=== PATIENT | female | born 1980 | race Caucasian/White ===

== ENCOUNTER 2018-12-06 15:25 | Inpatient (IN) | payer OTHER ==
[2018-12-06] MEDS ORDERED: DOCUSATE SODIUM 100 MG CAP PO (17:30)
[2018-12-06] MEDS ORDERED: HYDROCODONE/APAP (5/325) TAB PO (17:30)
[2018-12-06] MEDS: PROMETHAZINE 25 MG SUPP PR (17:30)
[2018-12-06] MEDS ORDERED: ACETAMINOPHEN 325 MG TAB PO (17:30)
[2018-12-06] MEDS ORDERED: MAGNESIUM HYDROXIDE 30ML CUP PO (17:30)
[2018-12-06] MEDS ORDERED: ALBUTEROL/IPRATROPIUM (NEB) 3 ML AMP HHN (17:30)
[2018-12-06] MEDS ORDERED: ONDANSETRON 4 MG INJ IV (17:30)
[2018-12-06] MEDS ORDERED: NACL 0.9% 3 ML SYG IV (17:30)
[2018-12-06] MEDS ORDERED: NITROGLYCERIN (SL) 0.4 MG TAB SL (17:30)
[2018-12-06] MEDS: PANTOPRAZOLE 40 MG INJ IV (18:04)
[2018-12-06] MEDS: SOD CHLORIDE 0.9% 1,000 ML IV (18:05)
[2018-12-06] MEDS: HEPARIN 5,000 UNIT/1 ML VIAL SC (20:46)
[2018-12-06 23:12] LABS: FREE T4 (FREE THYROXINE) 1.37 ng/dl (0.79-2.35)
[2018-12-07] MEDS: ONDANSETRON 4 MG INJ IV ×2 (00:23→10:41)
[2018-12-07] MEDS: SOD CHLORIDE 0.9% 1,000 ML IV ×4 (03:19→23:10)
[2018-12-07 05:27] LABS: ADD MAN DIFF? NO
[2018-12-07 05:38] LABS: BASOPHIL # 0.1 10^3/ul (0.0-0.1); BASOPHILS % 0.6 % (0.0-2.0); EOSINOPHILS # 0.1 10^3/ul (0.0-0.5); HEMATOCRIT 37.7 % (37.0-47.0); LYMPHOCYTES # 2.6 10^3/ul (0.8-2.9); LYMPHOCYTES % 26.4 % (15.0-51.0); MEAN CORPUSCULAR HEMOGLOBIN 27.3 pg (29.0-33.0); MEAN CORPUSCULAR HGB CONC 31.8 g/dl (32.0-37.0); MEAN CORPUSCULAR VOLUME 85.9 fl (82.0-101.0); MEAN PLATELET VOLUME 10.4 fl (7.4-10.4); MONOCYTES % 10.4 % (0.0-11.0); NEUTROPHILS % 61.3 % (39.0-77.0); PLATELET COUNT 302 10^3/UL (140-415); RED BLOOD COUNT 4.39 10^6/ul (4.20-5.40)
[2018-12-07 05:38] LABS: WHITE BLOOD COUNT 9.9 10^3/ul (4.8-10.8)
[2018-12-07 06:05] LABS: ANION GAP 10 (5-13); BLOOD UREA NITROGEN 14 mg/dl (7-20); CALCIUM 8.9 mg/dl (8.4-10.2); CARBON DIOXIDE 27 mmol/L (21-31); CHLORIDE 100 mmol/L (97-110); CHOL/HDL RATIO 4.3 RATIO; CHOLESTEROL 184 mg/dl (100-200); CREATININE 0.73 mg/dl (0.44-1.00); Estimated GFR > 60 mL/min (>60); GLUCOSE 101 mg/dl (70-220); HDL CHOLESTEROL 42 mg/dl (34-82); LDL CHOLESTEROL,CALCULATED 109 mg/dl; MAGNESIUM 2.4 mg/dl (1.7-2.5); PHOSPHORUS 3.1 mg/dl (2.5-4.9); POTASSIUM 3.5 mmol/L (3.5-5.1); SODIUM 137 mmol/L (135-144); TRIGLYCERIDES 163 mg/dl (0-149)
[2018-12-07] MEDS: PANTOPRAZOLE 40 MG INJ IV ×2 (07:01→18:02)
[2018-12-07 08:03] LABS: HEMOGLOBIN A1C 5.2 % (0-5.9)
[2018-12-07] MEDS: HEPARIN 5,000 UNIT/1 ML VIAL SC ×2 (09:00→21:00)
[2018-12-07] MEDS: morphine 2 MG INJ IV (11:22)
[2018-12-07] MEDS: hydrALAzine 20 MG INJ IV (11:23)
[2018-12-07] MEDS: METOCLOPRAMIDE 10 MG INJ IV ×2 (12:57→18:24)
[2018-12-07] MEDS ORDERED: TRIMETHOBENZAMIDE 100 MG/ML VIAL IM (13:00)
[2018-12-07] MEDS: ONDANSETRON INJ 8 MG in SOD CHLORIDE 0.9% 50 ML IV ×2 (15:15→21:21)
[2018-12-07] MEDS: LORAZEPAM 2 MG INJ IV (22:17)
[2018-12-08] MEDS: SOD CHLORIDE 0.9% 1,000 ML IV (03:38)
[2018-12-08] MEDS: ONDANSETRON INJ 8 MG in SOD CHLORIDE 0.9% 50 ML IV (03:38)
[2018-12-08 05:36] LABS: ADD MAN DIFF? NO
[2018-12-08 05:45] LABS: WHITE BLOOD COUNT 10.2 10^3/ul (4.8-10.8)
[2018-12-08 05:45] LABS: BASOPHIL # 0.1 10^3/ul (0.0-0.1); BASOPHILS % 0.7 % (0.0-2.0); EOSINOPHILS # 0.1 10^3/ul (0.0-0.5); EOSINOPHILS % 1.2 % (0.0-7.0); HEMATOCRIT 35.4 % (37.0-47.0); HEMOGLOBIN 11.3 g/dl (12.0-16.0); LYMPHOCYTES # 2.3 10^3/ul (0.8-2.9); LYMPHOCYTES % 22.2 % (15.0-51.0); MEAN CORPUSCULAR HEMOGLOBIN 27.2 pg (29.0-33.0); MEAN CORPUSCULAR HGB CONC 31.9 g/dl (32.0-37.0); MEAN CORPUSCULAR VOLUME 85.1 fl (82.0-101.0); MEAN PLATELET VOLUME 10.8 fl (7.4-10.4); MONOCYTE # 0.9 10^3/ul (0.3-0.9); MONOCYTES % 8.5 % (0.0-11.0); NEUTROPHIL # 6.8 10^3/ul (1.6-7.5); NEUTROPHILS % 66.9 % (39.0-77.0); PLATELET COUNT 262 10^3/UL (140-415); RED BLOOD COUNT 4.16 10^6/ul (4.20-5.40); RED CELL DISTRIBUTION WIDTH 12.9 % (11.5-14.5)
[2018-12-08 05:58] LABS: ANION GAP 9 (5-13); BLOOD UREA NITROGEN 12 mg/dl (7-20); CALCIUM 8.6 mg/dl (8.4-10.2); CARBON DIOXIDE 25 mmol/L (21-31); CHLORIDE 103 mmol/L (97-110); CREATININE 0.75 mg/dl (0.44-1.00); Estimated GFR > 60 mL/min (>60); GLUCOSE 96 mg/dl (70-220); POTASSIUM 3.3 mmol/L (3.5-5.1); SODIUM 137 mmol/L (135-144)
[2018-12-08] MEDS: PANTOPRAZOLE 40 MG INJ IV ×2 (06:04→18:00)
[2018-12-08 06:11] LABS: MAGNESIUM 2.1 mg/dl (1.7-2.5)
[2018-12-08 06:11] LABS: PHOSPHORUS 3.6 mg/dl (2.5-4.9)
[2018-12-08] MEDS: HEPARIN 5,000 UNIT/1 ML VIAL SC (08:12)
[2018-12-08] MEDS: hydrALAzine 20 MG INJ IV (08:12)
== END 2018-12-08 19:00 | disposition home or self-care (01) | DRG 103 ==
LOC: 2NE 15:25
PROVIDERS: Hospitalist
DX: G43.A0 Cyclical vomiting, in migraine, not intractable (principal); K29.70 Gastritis, unspecified, without bleeding; T40.7X5A Adverse effect of cannabis (derivatives), initial encounter
CPT/HCPCS: 80048; 80061; 83036; 83735; 84100; 84439; 84443; 85025